=== PATIENT | male | born 1985 | race Caucasian/White ===

== ENCOUNTER 2017-04-27 22:31 | Emergency (ER) | payer SELFPAY ==
[2017-04-27 22:57] VITALS: BP 144/98
[2017-04-27] MEDS ORDERED: Sodium Chloride 0.9% 10 ML Syringe FLUSH PRN (23:19)
[2017-04-27] MEDS ORDERED: Ondansetron 4 MG/2 ML SDV IVPUSH ONE (23:19)
[2017-04-27] MEDS ORDERED: Ketorolac 30 MG/ML SDV IVPUSH ONE (23:20)
[2017-04-27] MEDS ORDERED: Sodium Chloride 0.9% 1,000 ML IV SCH (23:30)
[2017-04-28] MEDS ORDERED: LORazepam 2 MG/ML MDV IVPUSH ONE (00:34)
[2017-04-28] MEDS ORDERED: HYDROmorphone 1 MG/ML Syringe IVPUSH ONE (00:43)
--- NOTE | 2017-04-28 00:50 | EDM.PDOC ---
ED HPI GENERAL MEDICAL PROBLEM - General Chief Complaint: General Stated Complaint: POSS LIVER PROBLEM Time Seen by Provider: 04/27/17 23:08 Source of Information: Reports: Patient History Limitations: Reports: No Limitations - History of Present Illness INITIAL COMMENTS - FREE TEXT/NARRATIVE: The patient has had varying symptoms over the past 2 weeks. He has had itching all over his body. Swelling in his hands and feet. Right sided abdominal pain for a few days. He has nausea and diarrhea. He is an alcoholic and drinks 1 pint of anika per day. He last drank Wednesday night. He has chills but no fever. He has no chest pain or shortness of breath. Onset: Gradual Duration: Week(s): (2) Location: Reports: Abdomen Quality: Reports: Sharp Severity: Moderate Improves with: Reports: None Worsens with: Reports: None Associated Symptoms: Reports: Fever/Chills, Headaches, Nausea/Vomiting. Denies : Chest Pain, Shortness of Breath Right Lower Abdomen Pain Score (Numeric/FACES): 10 - Related Data Allergies Allergy/AdvReac Type Severity Reaction Status Date / Time No Known Allergies Allergy Verified 04/27/17 22:46 Home Meds: Home Meds LORazepam [Ativan] 1 mg PO TID #18 tablet 04/28/17 [Rx] Ondansetron [Zofran ODT] 4 mg PO Q6H PRN #20 tab.dis 04/28/17 [Rx] Sulfamethoxazole/Trimethoprim [Bactrim Ds Tablet] 1 each PO BID #6 tablet [Rx] Past Medical History - Past Health History Medical/Surgical History: Denies Medical/Surgical History Respiratory History: Reports: PE Psychiatric History: Reports: Addiction Hematologic History: Reports: Anemia - Infectious Disease History Infectious Disease History: Reports: Chicken Pox - Past Surgical History Respiratory Surgical History: Reports: None Social & Family History - Family History Family Medical History: Noncontributory - Tobacco Use Smoking Status *Q: Current Every Day Smoker Years of Tobacco use: 12 Packs/Tins Daily: 0.2 Second Hand Smoke Exposure: No - Caffeine Use Caffeine Use: Reports: Soda, Tea - Alcohol Use Days Per Week of Alcohol Use: 0 Date of Last Drink: 04/27/17 Time of Last Drink: 21:00 - Recreational Drug Use Recreational Drug Use: No ED ROS GENERAL - Review of Systems Review Of Systems: See Below Constitutional: Reports: Chills, Weakness HEENT: Reports: No Symptoms Respiratory: Reports: No Symptoms Cardiovascular: Reports: No Symptoms Endocrine: Reports: No Symptoms GI/Abdominal: Reports: Abdominal Pain, Diarrhea, Nausea, Vomiting : Reports: No Symptoms Musculoskeletal: Reports: No Symptoms Skin: Reports: No Symptoms ED EXAM, GENERAL - Physical Exam Exam: See Below Exam Limited By: No Limitations General Appearance: Alert, No Apparent Distress Ears: Normal External Exam Nose: Normal Inspection Head: Atraumatic, Normocephalic Neck: Normal Inspection Respiratory/Chest: No Respiratory Distress, Lungs Clear, Normal Breath Sounds Cardiovascular: Regular Rate, Rhythm, No Edema, No Murmur GI/Abdominal: Soft, No Organomegaly, No Mass, Tender (Moderate pain upon palpation to the right abdomen) Extremities: Normal Inspection Neurological: Alert, Oriented, No Motor/Sensory Deficits Course - Vital Signs Last Recorded V/S: Last Vital Signs Temp 97.7 F 04/27/17 22:47 Pulse 120 H 04/27/17 22:47 Resp 16 04/27/17 22:47 BP 144/98 H 04/27/17 22:47 Pulse Ox 97 04/27/17 22:47 - Orders/Labs/Meds Orders: Active Orders 24 hr Category Date Time Status Cardiac Monitoring [RC] . DIRECTED Care 04/27/17 23:19 Active Peripheral IV Care [RC] . DIRECTED Care 04/27/17 23:20 Active Abdomen Pelvis w Cont [CT] Stat Exams 04/28/17 00:43 Taken CULTURE STOOL + SHIGATOX [RM] Stat Lab 04/28/17 00:42 Received Sodium Chloride 0.9% [Normal Saline] 1,000 ml Med 04/27/17 23:30 Active IV .BOLUS Sodium Chloride 0.9% [Saline Flush] Med 04/27/17 23:19 Active 10 ml FLUSH ASDIRECTED PRN ED Antiemetic Medication Reflex [OM.PC] Stat Oth 04/27/17 23:19 Ordered Peripheral IV Insertion Adult [OM.PC] Stat Oth 04/27/17 23:19 Ordered Medication Orders Sodium Chloride (Normal Saline) 1,000 mls @ 1,000 mls/hr IV .BOLUS DAMIAN Last Admin: 04/27/17 23:43 Dose: 1,000 mls/hr Sodium Chloride (Saline Flush) 10 ml FLUSH ASDIRECTED PRN PRN Reason: Keep Vein Open Last Admin: 04/27/17 23:42 Dose: 10 ml Labs: Laboratory Tests 04/27/17 04/27/17 04/27/17 Range/Units 23:40 23:40 23:40 WBC 12.13 H (4.23-9.07) K/mm3 RBC 4.97 (4.63-6.08) M/mm3 Hgb 15.6 (13.7-17.5) gm/L Hct 44.2 (40.1-51.0) % MCV 88.9 (79.0-92.2) fl MCH 31.4 (25.7-32.2) pg MCHC 35.3 (32.2-35.5) g/dl RDW Std Deviation 43.6 (35.1-43.9) fL Plt Count 194 (163-337) K/mm3 MPV 9.3 L (9.4-12.3) fl Neut % (Auto) 81.9 H (34.0-67.9) % Lymph % (Auto) 10.9 L (21.8-53.1) % [place] % (Auto) 6.5 (5.3-12.2) % Eos % (Auto) 0.2 L (0.8-7.0) Baso % (Auto) 0.2 (0.1-1.2) % Neut # (Auto) 9.92 H (1.78-5.38) K/mm3 Lymph # (Auto) 1.32 (1.32-3.57) K/mm3 [place] # (Auto) 0.79 (0.30-0.82) K/mm3 Eos # (Auto) 0.03 L (0.04-0.54) K/mm3 Baso # (Auto) 0.03 (0.01-0.08) K/mm3 PT 12.2 (8.0-13.0) SECONDS INR 1.11 Sodium 135 L (136-145) mEq/L Potassium 3.6 (3.5-5.1) mEq/L Chloride 98 (98-107) mEq/L Carbon Dioxide 28 (21-32) mEq/L Anion Gap 12.6 (5-15) BUN 6 L (7-18) mg/dL Creatinine 1.0 (0.7-1.3) mg/dL Est Cr Clr Drug Dosing 104.50 mL/min Estimated GFR (MDRD) > 60 (>60) mL/min BUN/Creatinine Ratio 6.0 L (14-18) Glucose 112 H (74-106) mg/dL Calcium 9.1 (8.5-10.1) mg/dL Total Bilirubin 0.7 (0.2-1.0) mg/dL AST 38 H (15-37) U/L ALT 112 H (16-63) U/L Alkaline Phosphatase 61 (46-116) U/L Total Protein 7.8 (6.4-8.2) g/dl Albumin 3.4 (3.4-5.0) g/dl Globulin 4.4 gm/dL Albumin/Globulin Ratio 0.8 L (1-2) Lipase 48 L (73-393) U/L Urine Opiates Screen (NEGATIVE) Ur Buprenorphine Scrn (NEGATIVE) Ur Oxycodone Screen (NEGATIVE) Urine Methadone Screen (NEGATIVE) Ur Propoxyphene Screen (NEGATIVE) Ur Barbiturates Screen (NEGATIVE) Ur Tricyclics Screen (NEGATIVE) Ur Phencyclidine Scrn (NEGATIVE) Ur Amphetamine Screen (NEGATIVE) U Methamphetamines Scrn (NEGATIVE) U Benzodiazepines Scrn (NEGATIVE) U Cocaine Metab Screen (NEGATIVE) U Marijuana (THC) Screen (NEGATIVE) Ethyl Alcohol 0.00 (0.00) gm% C.difficile [id number]-[id number] C. difficile Tox (PCR) 04/27/17 04/28/17 Range/Units 23:48 00:42 WBC (4.23-9.07) K/mm3 RBC (4.63-6.08) M/mm3 Hgb (13.7-17.5) gm/L Hct (40.1-51.0) % MCV (79.0-92.2) fl MCH (25.7-32.2) pg MCHC (32.2-35.5) g/dl RDW Std Deviation (35.1-43.9) fL Plt Count (163-337) K/mm3 MPV (9.4-12.3) fl Neut % (Auto) (34.0-67.9) % Lymph % (Auto) (21.8-53.1) % [place] % (Auto) (5.3-12.2) % Eos % (Auto) (0.8-7.0) Baso % (Auto) (0.1-1.2) % Neut # (Auto) (1.78-5.38) K/mm3 Lymph # (Auto) (1.32-3.57) K/mm3 [place] # (Auto) (0.30-0.82) K/mm3 Eos # (Auto) (0.04-0.54) K/mm3 Baso # (Auto) (0.01-0.08) K/mm3 PT (8.0-13.0) SECONDS INR Sodium (136-145) mEq/L Potassium (3.5-5.1) mEq/L Chloride (98-107) mEq/L Carbon Dioxide (21-32) mEq/L Anion Gap (5-15) BUN (7-18) mg/dL Creatinine (0.7-1.3) mg/dL Est Cr Clr Drug Dosing mL/min Estimated GFR (MDRD) (>60) mL/min BUN/Creatinine Ratio (14-18) Glucose (74-106) mg/dL Calcium (8.5-10.1) mg/dL Total Bilirubin (0.2-1.0) mg/dL AST (15-37) U/L ALT (16-63) U/L Alkaline Phosphatase (46-116) U/L Total Protein (6.4-8.2) g/dl Albumin (3.4-5.0) g/dl Globulin gm/dL Albumin/Globulin Ratio (1-2) Lipase (73-393) U/L Urine Opiates Screen Negative (NEGATIVE) Ur Buprenorphine Scrn Negative (NEGATIVE) Ur Oxycodone Screen Negative (NEGATIVE) Urine Methadone Screen Negative (NEGATIVE) Ur Propoxyphene Screen Negative (NEGATIVE) Ur Barbiturates Screen Negative (NEGATIVE) Ur Tricyclics Screen Negative (NEGATIVE) Ur Phencyclidine Scrn Negative (NEGATIVE) Ur Amphetamine Screen Negative (NEGATIVE) U Methamphetamines Scrn Negative (NEGATIVE) U Benzodiazepines Scrn Negative (NEGATIVE) U Cocaine Metab Screen Negative (NEGATIVE) U Marijuana (THC) Screen Negative (NEGATIVE) Ethyl Alcohol (0.00) gm% C.difficile [id number]-[id number] Presumptive negative C. difficile Tox (PCR) Negative Meds: Medications Generic Name Dose Route Start Last Admin Trade Name Freq PRN Reason Stop Dose Admin Sodium Chloride 1,000 mls @ 1,000 mls/hr 04/27/17 23:30 04/27/17 23:43 Normal Saline IV 1,000 mls/hr .BOLUS DAMIAN Administration Sodium Chloride 10 ml 04/27/17 23:19 04/27/17 23:42 Saline Flush FLUSH 10 ml ASDIRECTED PRN Administration Keep Vein Open Discontinued Medications Generic Name Dose Route Start Last Admin Trade Name Freq PRN Reason Stop Dose Admin Diatrizoate Meglum/Diatrizoate Sod 90 ml 04/28/17 02:23 04/28/17 02:47 Gastrografin 37% PO 04/28/17 02:24 90 ml ONETIME ONE Administration Hydromorphone HCl 1 mg 04/28/17 00:43 04/28/17 01:01 Dilaudid IVPUSH 04/28/17 00:44 1 mg ONETIME ONE Administration Iopamidol 125 ml 04/28/17 02:23 04/28/17 02:47 Isovue-300 (61%) IVPUSH 04/28/17 02:24 125 ml ONETIME ONE Administration Ketorolac Tromethamine 30 mg 04/27/17 23:20 04/27/17 23:46 Toradol IVPUSH 04/27/17 23:21 30 mg ONETIME ONE Administration Lorazepam 1 mg 04/28/17 00:34 04/28/17 00:59 Ativan IVPUSH 04/28/17 00:35 1 mg ONETIME ONE Administration Ondansetron HCl 4 mg 04/27/17 23:19 04/27/17 23:44 Zofran IVPUSH 04/27/17 23:20 4 mg ONETIME ONE Administration - Re-Assessments/Exams Free Text/Narrative Re-Assessment/Exam: 04/28/17 00:56 I ordered an IV NS 1L bolus, zofran 4mg IV, toradol 30mg IV, labs, UA, and UDS. 04/28/17 00:58 His WBC is elevated at 12.13. His PT and INR are normal. His Na was a little low at 135. His creatinine is normal at 1. His AST was slightly elevated at 38. His ALT was elevated at 112. His lipase was low at 48. His UDS was negative. His ETOH was 0. He has more pain in the RLQ and he is anxious. I ordered a CT of his abdomen and pelvis. I also ordered some ativan and dilaudid. We got a stool sample so I ordered a culture, C-dif and occult blood. 04/28/17 03:11 His C-dif was negative. His stool did have some blood. The CT shows diffuse mild colitis. This could be infectious or inflammatory bowel disease. Fatty liver and splenomegaly. The patient may have infectious diarrhea. I will give him a dose of bactrim here and have him take that for 3 days. I will also get him on some ativan to prevent alcohol withdrawals. Departure - Departure Time of Disposition: 03:15 Disposition: Home, Self-Care 01 Condition: Good Clinical Impression: Colitis Alcohol dependence Qualifiers: Substance use status: uncomplicated Qualified Code(s): F10.20 - Alcohol dependence, uncomplicated - Discharge Information Prescriptions: LORazepam [Ativan] 1 mg PO TID #18 tablet Ondansetron [Zofran ODT] 4 mg PO Q6H PRN #20 tab.dis PRN Reason: Nausea/Vomiting Sulfamethoxazole/Trimethoprim [Bactrim Ds Tablet] 1 each PO BID #6 tablet Referrals: PCP,None [Primary Care Provider] - Haylee Flores [Physician] - 1 Week Forms: ED Department Discharge Additional Instructions: Take the bactrim 2 times per day for 3 days. Take the ativan 1mg three times per day for 3 days, then 1mg two times per day for 3 days and then 1mg at night for 3 days. Follow up with Dr Jasso in 1 week. Follow up with [facility] [phone] or Epifanio Gan at [facility]stance Abuse counceling at [phone]. Please return if you are worse. - My Orders Last 24 Hours: My Active Orders 04/27/17 23:19 Cardiac Monitoring [RC] . DIRECTED Sodium Chloride 0.9% [Saline Flush] 10 ml FLUSH ASDIRECTED PRN ED Antiemetic Medication Reflex [OM.PC] Stat Peripheral IV Insertion Adult [OM.PC] Stat 04/27/17 23:20 Peripheral IV Care [RC] . DIRECTED 04/27/17 23:30 Sodium Chloride 0.9% [Normal Saline] 1,000 ml IV .BOLUS 04/28/17 00:42 CULTURE STOOL + SHIGATOX [RM] Stat 04/28/17 00:43 Abdomen Pelvis w Cont [CT] Stat - Assessment/Plan Last 24 Hours: My Active Orders 04/27/17 23:19 Cardiac Monitoring [RC] . DIRECTED Sodium Chloride 0.9% [Saline Flush] 10 ml FLUSH ASDIRECTED PRN ED Antiemetic Medication Reflex [OM.PC] Stat Peripheral IV Insertion Adult [OM.PC] Stat 04/27/17 23:20 Peripheral IV Care [RC] . DIRECTED 04/27/17 23:30 Sodium Chloride 0.9% [Normal Saline] 1,000 ml IV .BOLUS 04/28/17 00:42 CULTURE STOOL + SHIGATOX [RM] Stat 04/28/17 00:43 Abdomen Pelvis w Cont [CT] Stat
[2017-04-28] MEDS ORDERED: Iopamidol 612 MG/ML 150 ML Bottle IVPUSH ONE (02:23)
[2017-04-28] MEDS ORDERED: Diatrizoate Meglumine/Diatrizoate Sodium 37% 120 ML Bottle PO ONE (02:23)
[2017-04-28] MEDS ORDERED: Sulfamethoxazole/Trimethoprim 800-160 MG Tab PO ONE (03:13)
--- NOTE | 2017-04-28 08:12 | CT ---
CT abdomen and pelvis Technique: Multiple axial sections were obtained through the abdomen and pelvis. Intravenous and oral contrast has been given. Delayed images were also obtained through the bladder. Findings: Haziness identified around the right side of the colon. Mild diffuse bowel wall thickening is felt to be present. Findings are suspicious for diffuse colitis. Findings otherwise are nonspecific. Visualized lung bases show nothing acute. Fatty infiltration is identified within the liver. Spleen is mildly prominent in size with length of 14 cm which is slightly over normal. No parenchymal abnormality seen within the spleen. Adrenal glands show no nodule. Kidneys show symmetric contrast enhancement without hydronephrosis or mass. Pancreas is normal. Soft tissue abnormality seen medial to the spleen compatible with accessory splenic tissue. Aorta shows no aneurysmal dilatation. No retroperitoneal adenopathy or mesenteric abnormalities are seen. Appendix is seen which is normal. No pelvic mass or adenopathy is seen. Delayed images shows contrast within the distal ureters and bladder. Bone window settings were reviewed which appear within normal limits for the patient's age. Impression: 1. Mild scattered bowel wall thickening within the colon with right sided inflammatory change around the colon. Findings compatible with diffuse nonspecific colitis. 2. Spleen is mildly enlarged. 3. Fatty infiltration noted within the liver. Diagnostic code #3 I agree with preliminary report issued by [employer] ([facility] report finalized on 04/28/17, 3:59 AM Central Time)
== END 2017-04-28 03:32 | disposition home or self-care (01) ==
LOC: JD.ED 22:31
DX: K52.9 Noninfective gastroenteritis and colitis, unspecified (principal); F10.20 Alcohol dependence, uncomplicated; K76.0 Fatty (change of) liver, not elsewhere classified; R16.1 Splenomegaly, not elsewhere classified; F17.210 Nicotine dependence, cigarettes, uncomplicated; Z86.2 Personal history of diseases of the blood and blood-forming organs and certain disorders involving the immune mechanism; Z86.711 Personal history of pulmonary embolism
CPT/HCPCS: 36415; 74177; 80053; 80306; 82270; 83690; 85025; 85610; 87046; 87493; 96361; 96374; 96375; 99284; A9270; G0480; J1170; J1885; J2060; J2405; J7040; J7050; Q9963; Q9967; 87077; 87427

== ENCOUNTER 2018-01-07 10:41 | Emergency (ER) | payer BC ==
--- NOTE | 2018-01-07 11:45 | EDM.PDOC ---
ED HPI GENERAL MEDICAL PROBLEM - General Chief Complaint: Abdominal Pain Stated Complaint: Abdominal pain Time Seen by Provider: 01/07/18 11:30 Source of Information: Reports: Patient, RN Notes Reviewed History Limitations: Reports: No Limitations - History of Present Illness INITIAL COMMENTS - FREE TEXT/NARRATIVE: 32 year old male presents to the ED today with complaints of LUQ pain x1 week. Her describes a burning sensation to his LUQ. He reports 1 episode of vomiting yesterday. Otherwise he has been eating and drinking without any problems. The pain is not worsened by eating. He does not drink much caffeine. However, eh drinks a fifth of liquor a day on most days of the week. He says he will abstain from alcohol 1-2 days a week and denies withdrawal symptoms. He denies diarrhea. He reports some shortness of breath. He denies cough, dyspnea on exertion or pleuritic type chest pain. He reports a history of a PE approximately 7 years ago. The cause of this was unclear. He had negative lower extremity ultrasounds at that time. He's had no reoccurrence. He is not on blood thinners. They felt the PE may have come from a large laceration he sustained to his abdomen a month or so prior to the PE. He currently denies any lower extremity symptoms including unilateral pain, swelling, or erythema. He initially presented to the walk-in clinic but was sent here to rule out PE. Other Treatments [employer]: none Left Upper Abdomen Pain Score (Numeric/FACES): 6 - Related Data Allergies Allergy/AdvReac Type Severity Reaction Status Date / Time No Known Allergies Allergy Verified 04/27/17 22:46 Home Meds: Home Meds LORazepam [Ativan] 0.5 mg PO Q8H #15 tab 01/07/18 [Rx] Omeprazole 20 mg PO BIDAC #20 cap.sr 01/07/18 [Rx] Sucralfate [Carafate] 1 gm PO QID #40 tablet 01/07/18 [Rx] Past Medical History - Past Health History Medical/Surgical History: Denies Medical/Surgical History Respiratory History: Reports: PE Psychiatric History: Reports: Addiction, Anxiety, Depression Hematologic History: Reports: Anemia - Infectious Disease History Infectious Disease History: Reports: Chicken Pox - Past Surgical History Respiratory Surgical History: Reports: None Social & Family History - Family History Family Medical History: Noncontributory - Tobacco Use Smoking Status *Q: Current Every Day Smoker Years of Tobacco use: 13 Packs/Tins Daily: 0.2 - Caffeine Use Caffeine Use: Reports: Energy Drinks, Soda - Recreational Drug Use Recreational Drug Use: No ED ROS GENERAL - Review of Systems Review Of Systems: See Below Constitutional: Reports: No Symptoms. Denies: Fever, Chills Respiratory: Reports: Shortness of Breath. Denies: Wheezing, Pleuritic Chest Pain, Cough, Hemoptysis Cardiovascular: Reports: No Symptoms. Denies: Chest Pain, Dyspnea on Exertion GI/Abdominal: Reports: Abdominal Pain, Distension, Vomiting. Denies: Constipation, Diarrhea, Nausea ED EXAM, GI/ABD - Physical Exam Exam: See Below Exam Limited By: No Limitations General Appearance: Alert, No Apparent Distress, Obese Respiratory/Chest: No Respiratory Distress, Lungs Clear, Normal Breath Sounds Cardiovascular: Regular Rate, Rhythm GI/Abdominal Exam: Normal Bowel Sounds, Soft, No Organomegaly, No Distention, Tender (LUQ and epigastric region ). No: Guarding, Rigid, Rebound Neurological: Alert, Oriented, Normal Cognition Course - Vital Signs Last Recorded V/S: Last Vital Signs Temp 96.9 F 01/07/18 11:22 Pulse 80 01/07/18 11:22 Resp 20 01/07/18 11:22 BP Pulse Ox 97 01/07/18 11:22 - Orders/Labs/Meds Labs: Laboratory Tests 01/07/18 01/07/18 01/07/18 Range/Units 11:55 11:55 11:55 WBC 9.70 H (4.23-9.07) K/mm3 RBC 4.79 (4.63-6.08) M/mm3 Hgb 15.5 (13.7-17.5) gm/L Hct 44.3 (40.1-51.0) % MCV 92.5 H (79.0-92.2) fl MCH 32.4 H (25.7-32.2) pg MCHC 35.0 (32.2-35.5) g/dl RDW Std Deviation 46.1 H (35.1-43.9) fL Plt Count 193 (163-337) K/mm3 MPV 9.2 L (9.4-12.3) fl Neut % (Auto) 52.8 (34.0-67.9) % Lymph % (Auto) 30.6 (21.8-53.1) % [place] % (Auto) 5.7 (5.3-12.2) % Eos % (Auto) 10.3 H (0.8-7.0) Baso % (Auto) 0.4 (0.1-1.2) % Neut # (Auto) 5.12 (1.78-5.38) K/mm3 Lymph # (Auto) 2.97 (1.32-3.57) K/mm3 [place] # (Auto) 0.55 (0.30-0.82) K/mm3 Eos # (Auto) 1.00 H (0.04-0.54) K/mm3 Baso # (Auto) 0.04 (0.01-0.08) K/mm3 D-Dimer, Quantitative 0.30 (0.19-0.50) mg/L Sodium 136 (136-145) mEq/L Potassium 4.3 (3.5-5.1) mEq/L Chloride 102 (98-107) mEq/L Carbon Dioxide 28 (21-32) mEq/L Anion Gap 10.3 (5-15) BUN 8 (7-18) mg/dL Creatinine 0.8 (0.7-1.3) mg/dL Est Cr Clr Drug Dosing 129.44 mL/min Estimated GFR (MDRD) > 60 (>60) mL/min BUN/Creatinine Ratio 10.0 L (14-18) Glucose 104 (74-106) mg/dL Calcium 8.7 (8.5-10.1) mg/dL Total Bilirubin 0.8 (0.2-1.0) mg/dL AST 165 H (15-37) U/L ALT 311 H (16-63) U/L Alkaline Phosphatase 77 (46-116) U/L Total Protein 7.4 (6.4-8.2) g/dl Albumin 3.2 L (3.4-5.0) g/dl Globulin 4.2 gm/dL Albumin/Globulin Ratio 0.8 L (1-2) Lipase 60 L (73-393) U/L Meds: Medications Discontinued Medications Generic Name Dose Route Start Last Admin Trade Name Freq PRN Reason Stop Dose Admin Al Hydroxide/Mg Hydroxide 30 0 ml 01/07/18 12:45 06/15/18 12:54 ml/ Lidocaine HCl 15 ml PO 01/07/18 12:46 45 ml ONETIME ONE Administration - Re-Assessments/Exams Free Text/Narrative Re-Assessment/Exam: CBC reveals a WBC upper limits of normal at 9.7. H&H is WNL. CMP normal except for AST 165 and ALT 311 consistent with chronic alcohol abuse. Bilirubin and Alk Phos are WNL. Lipase WNL ruling out pancreatitis. D-dimer is negative ruling out PE. Patient's history and exam findings are consistent with alcoholic gastritis. He was instructed to abstain from alcohol. He is agreeable to this and seems motivated. He is concerned about withdrawal. He says it's been several weeks since he has not consumed any alcohol. He has no history of tremors or seizures. Will prescribe Ativan 0.5mg every 8 hours as needed for withdrawal symptoms. He was prescribed Carafate and Omeprazole. He was instructed to f/u in our clinic next week to establish care and for follow-up. He is agreeable to this. States understanding. Educated on return precautions. Departure - Departure Time of Disposition: 13:01 Disposition: Home, Self-Care 01 Condition: Good Clinical Impression: Alcohol abuse Alcoholic gastritis Qualifiers: Chronicity: acute Gastritis bleeding: presence of bleeding unspecified Qualified Code(s): K29.20 - Alcoholic gastritis without bleeding - Discharge Information Prescriptions: LORazepam [Ativan] 0.5 mg PO Q8H #15 tab Omeprazole 20 mg PO BIDAC #20 cap.sr Sucralfate [Carafate] 1 gm PO QID #40 tablet Instructions: Alcohol Use Disorder Referrals: PCP,None [Primary Care Provider] - Forms: ED Department Discharge Additional Instructions: Recommend that you abstain from alcohol Ativan 0.5mg every 8 hours as needed for withdrawal symptoms Carafate 1 tablet before each meal and at bedtime Omeprazole 20mg twice a day for 2 weeks Avoid alcohol, caffeine, spicy foods, until symptoms resolve Return to ER if symptoms worsen Follow-up in our clinic next week to establish care with one of our primary care providers. [phone]
[2018-01-07] MEDS ORDERED: Alum Hydrox/Mag Hydrox/Simeth 30 ML, Lidocaine 2% 15 ML PO ONE ×2 (12:45)
== END 2018-01-07 13:25 | disposition home or self-care (01) ==
LOC: JD.ED 10:41
DX: K29.20 Alcoholic gastritis without bleeding (principal); F17.210 Nicotine dependence, cigarettes, uncomplicated; F10.10 Alcohol abuse, uncomplicated; Z79.899 Other long term (current) drug therapy
CPT/HCPCS: 36415; 80053; 83690; 85025; 85379; 99284; A9270

== ENCOUNTER 2022-05-09 18:52 | Emergency (ER) | payer BC ==
[2022-05-09 19:30] VITALS: BP 133/83; PULSE 82
[2022-05-09] MEDS ORDERED: Lidocaine 1% with EPINEPHrine 1:100,000 20 ML MDV INJECT ONE (19:39)
[2022-05-09] MEDS ORDERED: Lidocaine 1% with EPINEPHrine 1:100,000 10 ML MDV ONE (19:44)
== END 2022-05-09 20:30 | disposition home or self-care (01) ==
LOC: JD.ED 18:52
DX: S01.511A Laceration without foreign body of lip, initial encounter (principal); Z87.891 Personal history of nicotine dependence; W18.39XA Other fall on same level, initial encounter
CPT/HCPCS: 12011; 99282

== ENCOUNTER 2022-09-13 22:12 | Emergency (ER) | payer BC ==
[2022-09-13 22:38] VITALS: BP 135/93; PULSE 76
[2022-09-14] MEDS ORDERED: Morphine 4 MG/ML Syringe IVPUSH ONE (00:55)
[2022-09-14] MEDS ORDERED: Iopamidol 612 MG/ML 100 ML Bottle IVPUSH ONE (00:57)
[2022-09-14] MEDS ORDERED: Amoxicillin/Clavulanate K 875-125 MG Tab PO ONE (02:17)
== END 2022-09-14 02:43 | disposition home or self-care (01) ==
LOC: JD.ED 22:12
DX: L03.213 Periorbital cellulitis (principal)
CPT/HCPCS: 36415; 70487; 80053; 85025; 87651; 96374; 99284; A9270; J2270; Q9967

== ENCOUNTER 2022-10-11 21:37 | Emergency (ER) | payer BC ==
[2022-10-11 21:50] VITALS: BP 157/109; PULSE 70
[2022-10-11] MEDS ORDERED: predniSONE 20 MG Tab PO ONE (21:58)
[2022-10-11] MEDS ORDERED: Ibuprofen 800 MG Tab PO ONE (21:59)
== END 2022-10-11 22:17 | disposition home or self-care (01) ==
LOC: JD.ED 21:37
DX: I80.02 Phlebitis and thrombophlebitis of superficial vessels of left lower extremity (principal)
CPT/HCPCS: 99283; A9270; J7512

== ENCOUNTER 2022-11-06 17:12 | Emergency (ER) | payer BC ==
[2022-11-06 18:45] VITALS: BP 167/108; PULSE 72
== END 2022-11-06 20:04 ==
LOC: JD.ED 17:12
DX: Z53.21 Procedure and treatment not carried out due to patient leaving prior to being seen by health care provider (principal)

== ENCOUNTER 2022-11-07 07:56 | Emergency (ER) | payer BC ==
[2022-11-07] MEDS ORDERED: LORazepam 2 MG/ML SDV IVPUSH ONE (08:41)
[2022-11-07] MEDS ORDERED: Pantoprazole 40 MG Vial IVPUSH ONE (08:41)
[2022-11-07] MEDS ORDERED: Famotidine 20 MG/2 ML SDV IVPUSH ONE (08:41)
[2022-11-07] MEDS ORDERED: Sucralfate Suspension 1 GM/10 ML Cup PO ONE (08:42)
[2022-11-07] MEDS ORDERED: Alum Hydrox/Mag Hydrox/Simeth 30 ML, Lidocaine 2% 15 ML PO ONE ×2 (09:59)
[2022-11-07] MEDS ORDERED: Morphine 4 MG/ML Syringe IVPUSH ONE (11:09)
[2022-11-07] MEDS ORDERED: Iopamidol 755 Mg/ML 100 ML Bottle IVPUSH ONE (11:32)
[2022-11-07] MEDS ORDERED: Sodium Chloride 0.9% 10 ML Syringe FLUSH STA (11:39)
[2022-11-07] MEDS ORDERED: Morphine 2 MG/ML SYRINGE IVPUSH ONE (15:18)
[2022-11-07 16:26] VITALS: BP 146/105; PULSE 79
== END 2022-11-07 16:02 | disposition home or self-care (01) ==
LOC: JD.ED 07:56
DX: K29.70 Gastritis, unspecified, without bleeding (principal); F41.9 Anxiety disorder, unspecified
CPT/HCPCS: 36415; 71275; 74177; 80053; 83690; 84484; 85025; 93005; 96374; 96375; 96376; 99284; A9270; C9113; J2060; J2270; J3490; Q9967; 93010

== ENCOUNTER 2023-01-31 06:49 | Emergency (ER) | payer BC ==
[2023-01-31 08:39] VITALS: BP 150/83; PULSE 88
== END 2023-01-31 08:15 | disposition home or self-care (01) ==
LOC: JD.ED 06:49
DX: S83.8X2A Sprain of other specified parts of left knee, initial encounter (principal); X50.1XXA Overexertion from prolonged static or awkward postures, initial encounter; Y92.002 Bathroom of unspecified non-institutional (private) residence as the place of occurrence of the external cause
CPT/HCPCS: 73562-26-LT; 73562-LT; 99283